=== PATIENT | male | born 1940 | race Caucasian/White ===

== ENCOUNTER 2019-12-06 08:53 | Outpatient (CLI) | payer MEDICARE, OTHER ==
[2019-12-06 09:41] LABS: Estimated GFR-MDRD - POC Greater than 90
--- NOTE | 2019-12-06 11:24 | MRI ---
EXAM: MRI of the pelvis/prostate without and with contrast HISTORY: Prostate cancer COMPARISON: None TECHNIQUE: Multiplanar multisequence MR images were obtained of the pelvis without and with IV contra st. Evaluation of this exam was performed with a [employer] workstation. FINDINGS: Central gland: Mild hypertrophy of the central gland consistent with BPH. Prostate volume is estimate d at 19 mL No suspicious low T2 signal lesion is seen. Peripheral zone: No restricted diffusion is seen. No low signal on ADC map. Seminal vesicles: Intact. There is a 1.8 cm cystic structure associated with the left seminal vesicle which may represent a seminal vesicle cyst. Neurovascular bundles: Intact Pelvic lymph nodes: No pelvic adenopathy Other visualized intrapelvic structures: Scattered diverticula in the colon Osseous structures: No marrow signal abnormality IMPRESSION: 1. PI-RADS Category 2-low likelihood that a clinically significant cancer is present. 2. Diverticulosis
== END 2019-12-06 08:54 | disposition home or self-care (01) ==
LOC: TBSIIMAG 08:53
PROVIDERS: ATTEND Urology
DX: C61 Malignant neoplasm of prostate (principal); K57.90 Diverticulosis of intestine, part unspecified, without perforation or abscess without bleeding
CPT/HCPCS: 72197; 82565

== ENCOUNTER 2021-02-04 08:30 | Outpatient (CLI) | payer MEDICARE, OTHER | END 2021-02-04 08:31 | disposition home or self-care (01) | LOC: BICMAMMO 08:30 | PROVIDERS: ATTEND Internal Medicine | DX: Z13.820 Encounter for screening for osteoporosis (principal); M81.0 Age-related osteoporosis without current pathological fracture | CPT/HCPCS: 77080 ==

== ENCOUNTER 2022-01-28 11:57 | Outpatient (CLI) | payer MEDICARE, OTHER ==
[2022-01-28 14:26] LABS: Hemoglobin 13.9 g/dL (13.5-17.5); Mean Corpuscular HGB CONC 33.9 g/dL (32.0-36.0); Mean Corpuscular Hemoglobin 32.9 pg (27.0-33.0); Mean Corpuscular Volume 96.9 fl (81.2-95.1); Mean Platelet Volume 11.8 fl (7.4-10.4); Platelet Count 234 10x3/uL (150-450); RBC Distribution Width 12.8 % (11.5-14.5); Red Blood Cell (RBC) Count 4.23 10x6/uL (4.32-5.72); White Blood Cell (WBC) Count 8.4 10x3/uL (3.5-10.5)
[2022-01-28 14:29] LABS: Bilirubin Neg (Negative); Blood, Urine Negative (Negative); Clarity Clear (Clear); Glucose, Urine (Dipstick) Normal (Negative); Ketone, Urine Negative (Negative); Leukocyte Negative (Negative); Nitrite Negative (Negative); Protein, Urine (Dipstick) Negative (Neg-Trace); Specific Gravity, Urine 1.015 (1.005-1.030); Urobilinogen Normal mg/dL (Less than 2); pH, Urine 6.5 (5.0-9.0)
[2022-01-28 14:35] LABS: PTT 27.1 sec (22.0-33.0); Prothrombin Time 10.6 sec (9.5-12.1)
[2022-01-28 14:39] LABS: Bacteria/HPF None Seen HPF (None Seen); RBC/HPF 0-3 HPF (0-3); Squamous Epithelial 0-3 HPF (0-3); WBC/HPF 0-3 HPF (0-3)
[2022-01-28 14:45] LABS: Anion Gap 15 mmol/L (10-20); BUN (Urea Nitrogen) 20 mg/dL (8.4-25.7); Calc. Creatinine Clearance 0 mL/min (70-130); Calcium 9.5 mg/dL (7.8-10.44); Carbon Dioxide 24 mmol/L (23-31); Chloride 105 mmol/L (98-107); Estimated GFR 89; Glucose 92 mg/dL (83-110); Potassium 4.4 mmol/L (3.5-5.1); Sodium 140 mmol/L (136-145)
== END 2022-01-28 11:58 | disposition home or self-care (01) ==
LOC: LABBT 11:57
PROVIDERS: ATTEND Urology
DX: Z01.818 Encounter for other preprocedural examination (principal); C61 Malignant neoplasm of prostate; R97.20 Elevated prostate specific antigen [PSA]
CPT/HCPCS: 80048; 81001; 85027; 85610; 85730; 87086; 93005; 93010

== ENCOUNTER 2022-01-31 05:53 | Day surgery (SDC) | payer MEDICARE, OTHER ==
[2022-01-29 14:46] VITALS: BMI 20.5
[2022-01-31] MEDS ORDERED: Sodium Chloride 0.9% 100 ML ONE (06:12)
[2022-01-31] MEDS ORDERED: cefTRIAXone\\ROCEPHIN 1 GM VIAL ONE (06:12)
[2022-01-31] MEDS ORDERED: Fleet Enema 133 ML BOT PR SCH (06:15)
[2022-01-31] MEDS ORDERED: Ketamine 50 MG/ML (10ML VIAL) ONE (06:35)
[2022-01-31] MEDS ORDERED: fentaNYL Citrate/PF 100 MCG/2 ML SYRINGE ONE (06:35)
[2022-01-31] MEDS ORDERED: Propofol 500 MG/50 ML VIAL ONE (06:35)
[2022-01-31] MEDS ORDERED: Dexamethasone 20 MG/5 ML VIAL ONE (07:51)
[2022-01-31] MEDS ORDERED: PROPOFOL 200 MG/20 ML VIAL ONE (07:51)
[2022-01-31] MEDS ORDERED: ePHEDrine 50 MG/ML VIAL ONE (07:51)
[2022-01-31] MEDS ORDERED: Ondansetron PF 4 MG/2 ML Vial ONE (07:51)
[2022-01-31] MEDS ORDERED: Glycopyrrolate 0.2 MG/ML 5 ML SYRINGE ONE (07:51)
== END 2022-01-31 10:13 | disposition home or self-care (01) ==
LOC: SDC 05:53
PROVIDERS: ATTEND Urology
PROC: 0VB03ZX Excision of Prostate, Percutaneous Approach, Diagnostic (ICD-10-PCS; principal; 2022-01-31)
DX: C61 Malignant neoplasm of prostate (principal); H40.9 Unspecified glaucoma; Z79.83 Long term (current) use of bisphosphonates; Z79.899 Other long term (current) drug therapy
CPT/HCPCS: 88305; 88341; 88342; G0416; J0696; J1100; J2405; J2704; J3490

== ENCOUNTER 2022-10-16 11:56 | Outpatient (CLI) | payer MEDICARE, OTHER | END 2022-10-16 11:57 | disposition home or self-care (01) | LOC: SCSRAD 11:56 | PROVIDERS: ATTEND Nurse Practitioner Family | DX: R05.1 Acute cough (principal) | CPT/HCPCS: 71046; 87635 ==

== ENCOUNTER 2023-11-02 09:42 | Outpatient (CLI) | payer MEDICARE, OTHER | END 2023-11-02 09:43 | disposition home or self-care (01) | LOC: BICMAMMO 09:42 | PROVIDERS: ATTEND Internal Medicine | DX: M81.0 Age-related osteoporosis without current pathological fracture (principal); M85.88 Other specified disorders of bone density and structure, other site | CPT/HCPCS: 77080 ==